=== PATIENT | male | born 1995 | race Caucasian/White ===

== ENCOUNTER 2018-01-04 05:43 | Emergency (ER) | payer BC ==
[~2018-01-04] VITALS: Ht 190.5 cm; Wt 181.4 kg
[~2018-01-04 05:43] MED LIST: ELOCON15 G1 TP; FLEXERIL PO; IBUPROFEN 800800 M1 PO; KEFLEX500 MG PO; MOBIC7.5 MG PO; NOHOMEMEDICATIONS
[2018-01-04 06:02] LABS: URINE BILIRUBIN NEGATIVE (Negative); URINE BLOOD 3+ (Negative); URINE CLARITY CLEAR; URINE COLOR YELLOW; URINE GLUCOSE-RANDOM NEGATIVE (Negative); URINE KETONES NEGATIVE (Negative); URINE LEUKOCYTES-REFLEX NEGATIVE (Negative); URINE NITRITE-REFLEX NEGATIVE (Negative); URINE PROTEIN 2+ (Negative); URINE SPECIFIC GRAVITY >= 1.030 (1.005-1.030); URINE UROBILINOGEN 0.2 E.U./dl (0.2-1.0)
[2018-01-04 06:17] LABS: BACTERIA-REFLEX 1-9 Few /HPF (None Seen); CASTS None Seen /LPF (None Seen); CRYSTALS None Seen /LPF (None Seen); MUCUS 4-6 Moderate strn/LPF (None Seen); SQUAMOUS 4-10 Moderate /LPF (0-3); URINE WBC-REFLEX 0-5 Rare /HPF (0-5)
[2018-01-04 06:17] LABS: ABSOLUTE EOSINOPHILS 0.1 thou/uL (0.0-0.7); ABSOLUTE LYMPHOCYTES 1.4 thou/uL (0.8-5.3); ABSOLUTE MONOCYTES 0.5 thou/uL (0.0-1.2); ABSOLUTE NEUTROPHILS 4.8 thou/uL (1.6-8.1); BASOPHILS 0.4 %; EOSINOPHILS 2.1 %; HEMATOCRIT 41.9 % (42.0-52.0); HEMOGLOBIN 13.6 gm/dL (14.0-18.0); LYMPHOCYTES 20.1 %; MCH 27.6 pg (26.0-34.0); MCHC 32.4 g/dL (28.0-37.0); MCV 85.1 fL (80.0-100.0); MONOCYTES 7.8 %; MPV 7.8 fl. (7.2-11.1); NUCLEATED RBCS 0 /100WBC; PLATELET COUNT* 231 thou/uL (150-400); POLYS 69.6 %; RBC 4.93 mil/uL (4.50-6.00); RDW-CV 14.7 % (10.5-14.5); WBC 6.9 thou/uL (4.0-11.0)
[2018-01-04 07:16] LABS: CREATININE 1.2 mg/dL (0.6-1.3); POTASSIUM 3.8 mmol/L (3.5-5.1)
[2018-01-04 07:20] LABS: ALBUMIN 3.9 g/dL (3.4-5.0); TOTAL BILIRUBIN 0.5 mg/dL (<0.1-1.0); TOTAL PROTEIN 7.5 g/dL (6.4-8.2)
[2018-01-04] MEDS ORDERED: ZOFRAN ODT4 MG PO (08:49)
[2018-01-04] MEDS ORDERED: NORCO 5-325 TA1 EACH PO (08:49)
[2018-01-04 09:15] VITALS: BP 142/74
== END 2018-01-04 09:15 | disposition home or self-care (01) ==
LOC: M.ERS 05:43
PROVIDERS: Family Medicine
DX: N23 Unspecified renal colic (principal); R11.2 Nausea with vomiting, unspecified